=== PATIENT | male | born 1960 | race Caucasian/White ===

== ENCOUNTER 2017-06-19 14:37 | Emergency (ER) | payer OTHER ==
[~2017-06-19] VITALS: Ht 177.8 cm; Wt 90.0 kg
[2017-06-19 14:41] VITALS: Ht 177.8 cm; Wt 90.0 kg
[2017-06-19] MEDS ORDERED: BACI28.34 TOP (15:06)
--- NOTE | 2017-06-19 23:28 | ERD ---
ER Documentation Chief Complaint Date/Time DATE: 06/19/17 TIME: 23:24 Chief Complaint Lac on R.Arm x today cut at work HPI 57-year-old male presents to the emergency department with complaints of laceration to his right arm which occurred while he was working today. The patient states he was wearing a long sleeve shirt and he was hit in the right forearm with a piece of wood. Pain is mild and intermittent. Tetanus is up-to- date. The patient reports mild bleeding which stopped shortly after the injury occurred. He denies other injury or symptoms at this time. ROS All systems reviewed and are negative except as per history of present illness. Medications Home Meds Active Scripts Bacitracin* (Bacitracin Zinc Oint*) 28.35 Gm Oint, 1 APPLIC TOP BID, #1 TUB APPLI TO Prov:DESHAWN MCINTOSH PA-C 06/19/17 Allergies Allergies: Coded Allergies: No Known Allergy (Unverified , 06/19/17) PMhx/Soc Medical and Surgical Hx: pt denies Medical Hx, pt denies Surgical Hx Hx Alcohol Use: No Hx Substance Use: No Hx Tobacco Use: No Smoking Status: Never smoker Physical Exam Vitals Vital Signs Date Time Temp Pulse Resp B/P Pulse Ox O2 Delivery O2 Flow Rate FiO2 06/19/17 14:41 97.8 80 18 139/81 99 Physical Exam Const: Nontoxic, well-appearing male in no acute distress. Head: Atraumatic Eyes: Normal Conjunctiva ENT: Normal External Ears, Nose and Mouth. Skin: Superficial abrasions noted over the right forearm. There is an approximate 2 cm laceration which is very superficial with no active bleeding or evidence of foreign body. Back: No midline or flank tenderness Ext: No cyanosis, or edema Neur: Awake and alert Psych: Normal Mood and Affect Procedures/MDM 57-year-old male presents to the emergency department with complaints of laceration to his right forearm. Laceration Repair by me: Anesthesia: None required Location: Right forearm Tendon/Joint/Nerves: No injury Foreign body: None detected after copious irrigation and exploration Technique: Dermabond Complexity: No subcutaneous sutures/mucosal repair/ edge excision Post Closure Length: 2cm Patient's bleeding was easily controlled in the department and there is no indication of anemia. No evidence of compartment syndrome, neurologic injury, vascular injury, open joint, tendon laceration, or foreign body. Patient is appropriate for outpatient follow up. 48 hour wound check. Scar minimization instructions given. Departure Diagnosis: Primary Impression: Laceration of right forearm Encounter type: initial encounter Qualified Code: S51.811A - Laceration of right forearm, initial encounter Condition: Fair Patient Instructions: Laceration, Extremity (Skin Glue) Referrals: [facility] YOU HAVE RECEIVED A MEDICAL SCREENING EXAM AND THE RESULTS INDICATE THAT YOU DO NOT HAVE A CONDITION THAT REQUIRES URGENT TREATMENT IN THE EMERGENCY DEPARTMENT. FURTHER EVALUATION AND TREATMENT OF YOUR CONDITION CAN WAIT UNTIL YOU ARE SEEN IN YOUR DOCTORS OFFICE WITHIN THE NEXT 1-2 DAYS. IT IS YOUR RESPONSIBILITY TO MAKE AN APPOINTMENT FOR FOLOW-UP CARE. IF YOU HAVE A PRIMARY DOCTOR --you should call your primary doctor and schedule an appointment IF YOU DO NOT HAVE A PRIMARY DOCTOR YOU CAN CALL OUR PHYSICIAN REFERRAL HOTLINE AT IF YOU CAN NOT AFFORD TO SEE A PHYSICIAN YOU CAN CHOSE FROM THE FOLLOWING [facility] [address] [facility] [facility] [address] [facility] [email or web address] [address] [facility] [facility] [address] [facility] [facility] [address] [facility]. [facility]. [address] Additional Instructions: Call your primary care doctor TOMORROW for an appointment during the next 2-3 days.See the doctor sooner or return here if your condition worsens before your appointment time. DESHAWN MCINTOSH PA-C Jun 19, 2017 23:27
== END 2017-06-19 15:15 | disposition home or self-care (01) ==
LOC: FTE 14:37
DX: S51.811A Laceration without foreign body of right forearm, initial encounter (principal); W22.8XXA Striking against or struck by other objects, initial encounter; Y92.89 Other specified places as the place of occurrence of the external cause